=== PATIENT | female | born 1990 | race American Indian/Alaskan Native ===

== ENCOUNTER 2018-07-18 10:49 | Emergency (ER) | payer SELFPAY ==
[2018-07-18 11:02] VITALS: BP 129/81
[2018-07-18] MEDS ORDERED: DELTASONE PO ONE (11:49)
--- NOTE | 2018-07-18 11:59 | Emergency Department Report ---
ED General Adult HPI - General Chief complaint: Dyspnea/Respdistress Stated complaint: SOB/THYROID Time Seen by Provider: 07/18/18 11:42 Source: patient Mode of arrival: Ambulatory Limitations: No Limitations - History of Present Illness Initial comments: Patient is a 28-year-old female who is presenting with 3 days of shortness of breath. Patient was told she had to come to the ER from her primary care physician. Patient had asthma as a child has been short of breath for the past several days. Patient denies any cough fevers chills nausea vomiting headache or neck stiffness at this time. Patient 3 days ago took a nebulizer treatment from a friend of her Xanax if it felt better afterwards. Patient states the shortness of breath hasn't completely resolved however. Patient feels a tight sensation in the chest. Patient also states that sometimes she gets anxiety type symptoms and does feel some tingling in her hands and feet and mouth. - Related Data Previous Rx's Medication Instructions Recorded Last Taken Type predniSONE [Deltasone] 20 mg PO QDAY #5 tab 07/18/18 Unknown Rx Allergies Allergy/AdvReac Type Severity Reaction Status Date / Time No Known Allergies Allergy Unverified 07/18/18 11:02 ED Review of Systems ROS: Stated complaint: SOB/THYROID Other details as noted in HPI Comment: All other systems reviewed and negative ED Past Medical Hx - Past Medical History Previous Medical History?: Yes Hx Asthma: Yes - Surgical History Past Surgical History?: No - Social History Smoking Status: Former Smoker Substance Use Type: None - Medications Home Medications: Home Medications Medication Instructions Recorded Confirmed Last Taken Type predniSONE [Deltasone] 20 mg PO QDAY #5 tab 07/18/18 Unknown Rx ED Physical Exam - General Limitations: No Limitations General appearance: alert, in no apparent distress - Head Head exam: Present: atraumatic, normocephalic - Eye Eye exam: Present: normal appearance - ENT ENT exam: Present: mucous membranes moist - Neck Neck exam: Present: normal inspection - Respiratory Respiratory exam: Present: normal lung sounds bilaterally. Absent: respiratory distress, wheezes, rales, rhonchi - Cardiovascular Cardiovascular Exam: Present: regular rate, normal rhythm. Absent: systolic murmur, diastolic murmur, rubs, gallop - GI/Abdominal GI/Abdominal exam: Present: soft, normal bowel sounds - Extremities Exam Extremities exam: Present: normal inspection - Back Exam Back exam: Present: normal inspection - Neurological Exam Neurological exam: Present: alert, oriented X3 - Psychiatric Psychiatric exam: Present: normal affect, normal mood - Skin Skin exam: Present: warm, dry, intact, normal color. Absent: rash ED Course Vital Signs 07/18/18 10:59 Temperature 98.1 F Pulse Rate 73 Respiratory 22 Rate Blood Pressure 129/81 O2 Sat by Pulse 100 Oximetry ED Medical Decision Making - Medical Decision Making Differential differential includes pneumonia asthma exacerbation upper respiratory infection and anxiety. Patient states she does not want to take anything for anxiety. Patient is not wheezing and oxygen as well as 100%. Patient states she does have an inhaler and feels better after the neb treatment that she took 2 days ago. Patient will have prednisone added to her regimen for the chest tightness inflammation and will be discharged home. Critical care attestation.: If time is entered above; I have spent that time in minutes in the direct care of this critically ill patient, excluding procedure time. ED Disposition Clinical Impression: Dyspnea Qualifiers: Dyspnea type: unspecified Qualified Code(s): R06.00 - Dyspnea, unspecified Disposition: DC-01 TO HOME OR SELFCARE Is pt being admited?: No Does the pt Need Aspirin: No Condition: Stable Time of Disposition: 11:59
== END 2018-07-18 13:50 | disposition home or self-care (01) ==
LOC: ED 10:49
DX: R06.00 Dyspnea, unspecified (principal); Z87.891 Personal history of nicotine dependence
CPT/HCPCS: 99282; J7512